=== PATIENT | female | born 1975 | race Hispanic/Latino ===

== ENCOUNTER 2017-03-22 19:06 | Emergency (ER) | payer BC, SELFPAY | END 2017-03-22 22:08 | disposition home or self-care (01) | LOC: ERS 19:06 | DX: H60.91 Unspecified otitis externa, right ear (principal); E11.9 Type 2 diabetes mellitus without complications; F41.9 Anxiety disorder, unspecified; Z79.84 Long term (current) use of oral hypoglycemic drugs | CPT/HCPCS: 99282 ==

== ENCOUNTER 2017-03-29 22:18 | Emergency (ER) | payer SELFPAY ==
[2017-03-29 23:12] LABS: #Eosinphils 0.1 thou/uL (0.0-0.7); #Lymphocytes 2.1 thou/uL (1.20-3.40); #Monocytes 0.4 thou/uL (0.11-0.59); #Neutrophils 4.6 thou/uL (1.40-6.50); %Basophils 0.1 % (0.0-1.0); %Eosinophils 1.8 % (0.0-10.0); %Lymphocytes 28.8 % (21.0-51.0); %Monocytes 5.1 % (0.0-10.0); Hematocrit 36.3 % (36.0-47.0); Mean Platelet Volume 7.7 fL (7.4-10.4); Red Blood Cell (RBC) Count 4.42 mill/uL (4.20-5.40); White Blood Cell (WBC) Count 7.1 thou/uL (4.8-10.8)
[2017-03-29 23:33] LABS: ALT (SGPT) 67 U/L (8-55); AST (SGOT) 61 U/L (5-34); Alkaline Phosphatase 105 U/L (40-150); Anion Gap 11 mmol/L (10-20); BUN (Urea Nitrogen) 13 mg/dL (7.0-18.7); Bilirubin, Total 0.4 mg/dL (0.2-1.2); Calc. Creatinine Clearance 0 mL/min (70-130); Calcium 9.4 mg/dL (7.8-10.44); Carbon Dioxide 26 mmol/L (22-29); Chloride 101 mmol/L (98-107); Estimated GFR-MDRD 72; Protein, Total 7.6 g/dL (6.0-8.3)
[2017-03-29 23:39] LABS: Magnesium 1.8 mg/dL (1.6-2.6); Phosphorus 3.6 mg/dL (2.3-4.7)
[2017-03-30 00:04] LABS: Bilirubin Negative (Negative); Blood, Urine Negative (Negative); Glucose, Urine (Dipstick) >=1000 mg/dL (Negative); Ketone, Urine Negative (Negative); Nitrite Negative (Negative); Protein, Urine (Dipstick) Negative (Neg-Trace)
== END 2017-03-30 01:55 | disposition home or self-care (01) ==
LOC: ERS 22:18
DX: E11.65 Type 2 diabetes mellitus with hyperglycemia (principal); F41.9 Anxiety disorder, unspecified
CPT/HCPCS: 36415; 36416; 80053; 81003; 82010; 83735; 84100; 85025; 99284

== ENCOUNTER 2017-07-18 13:12 | Emergency (ER) | payer SELFPAY ==
[2017-07-18 15:17] LABS: #Eosinphils 0.1 thou/uL (0.0-0.7); #Lymphocytes 1.9 thou/uL (1.20-3.40); #Monocytes 0.3 thou/uL (0.11-0.59); #Neutrophils 4.1 thou/uL (1.40-6.50); %Basophils 0.7 % (0.0-1.0); %Eosinophils 1.7 % (0.0-10.0); %Lymphocytes 29.7 % (21.0-51.0); %Monocytes 5.2 % (0.0-10.0); %Neutrophils 62.7 % (42.0-75.0); Hemoglobin 14.3 g/dL (12.0-16.0); Mean Corpuscular HGB CONC 35.2 g/dL (32.0-36.0); Mean Corpuscular Hemoglobin 30.7 pg (27.0-31.0); Mean Corpuscular Volume 87.1 fl (81.0-99.0); Mean Platelet Volume 7.5 fL (7.4-10.4); Platelet Count 192 thou/uL (130-400); RBC Distribution Width 14.2 % (11.5-14.5); Red Blood Cell (RBC) Count 4.67 mill/uL (4.20-5.40); White Blood Cell (WBC) Count 6.5 thou/uL (4.8-10.8)
[2017-07-18 15:36] LABS: ALT (SGPT) 46 U/L (8-55); AST (SGOT) 38 U/L (5-34); Alkaline Phosphatase 106 U/L (40-150); Anion Gap 11 mmol/L (10-20); BUN (Urea Nitrogen) 12 mg/dL (7.0-18.7); Bilirubin, Total 0.4 mg/dL (0.2-1.2); Calc. Creatinine Clearance 0 mL/min (70-130); Calcium 9.6 mg/dL (7.8-10.44); Carbon Dioxide 22 mmol/L (22-29); Chloride 106 mmol/L (98-107); Estimated GFR-MDRD 86; Globulin 4.3 g/dL (2.4-3.5); Glucose 249 mg/dL (70-105); Potassium 3.9 mmol/L (3.5-5.1); Protein, Total 8.3 g/dL (6.0-8.3); Sodium 135 mmol/L (136-145)
[2017-07-18] MEDS ORDERED: Lidocaine 1% w/Epinephrine 1:100K 20 ML VIAL ONE (17:46)
== END 2017-07-18 18:49 | disposition home or self-care (01) ==
LOC: ERS 13:12
DX: L02.211 Cutaneous abscess of abdominal wall (principal); L03.311 Cellulitis of abdominal wall; E11.9 Type 2 diabetes mellitus without complications; F41.9 Anxiety disorder, unspecified; Z79.84 Long term (current) use of oral hypoglycemic drugs
CPT/HCPCS: 10060; 36415; 80053; 83605; 85025; J2001

== ENCOUNTER 2017-09-18 23:20 | Emergency (ER) | payer SELFPAY ==
--- NOTE | 2017-09-18 23:47 | RAD ---
CHEST ONE VIEW: 09/18/17 HISTORY: 42-year-old female with history of chest pain. COMPARISON: 04/28/16. FINDINGS: Monitor leads overlie the chest. Heart size is within normal limits. No confluent pneumonia, overt ed german, or pleural effusion. IMPRESSION: No acute intrathoracic disease. Stable from prior study. POS: [facility]ATH[facility]
[2017-09-18 23:50] LABS: #Eosinphils 0.1 thou/uL (0.0-0.7); #Lymphocytes 2.5 thou/uL (1.20-3.40); #Monocytes 0.5 thou/uL (0.11-0.59); #Neutrophils 4.8 thou/uL (1.40-6.50); %Basophils 0.3 % (0.0-1.0); %Eosinophils 1.8 % (0.0-10.0); %Neutrophils 60.9 % (42.0-75.0); Hemoglobin 14.5 g/dL (12.0-16.0); Mean Corpuscular HGB CONC 35.4 g/dL (32.0-36.0); Mean Corpuscular Hemoglobin 31.2 pg (27.0-31.0); Mean Corpuscular Volume 88.1 fl (81.0-99.0); Mean Platelet Volume 7.4 fL (7.4-10.4); Platelet Count 196 thou/uL (130-400); RBC Distribution Width 13.4 % (11.5-14.5); Red Blood Cell (RBC) Count 4.66 mill/uL (4.20-5.40)
[2017-09-19 00:09] LABS: ALT (SGPT) 46 U/L (8-55); AST (SGOT) 41 U/L (5-34); Albumin 3.9 g/dL (3.5-5.0); Alkaline Phosphatase 106 U/L (40-150); Anion Gap 13 mmol/L (10-20); BUN (Urea Nitrogen) 14 mg/dL (7.0-18.7); Bilirubin, Total 0.5 mg/dL (0.2-1.2); CK (CPK) 92 U/L (29-168); Calc. Creatinine Clearance 0 mL/min (70-130); Calcium 9.6 mg/dL (7.8-10.44); Carbon Dioxide 23 mmol/L (22-29); Chloride 104 mmol/L (98-107); Estimated GFR-MDRD 81; Glucose 204 mg/dL (70-105); Potassium 3.9 mmol/L (3.5-5.1); Protein, Total 7.9 g/dL (6.0-8.3); Sodium 136 mmol/L (136-145)
[2017-09-19 00:14] LABS: CKMB 0.7 ng/mL (0-6.6); Troponin I Less than 0.010 ng/mL (< 0.028)
--- NOTE | 2017-10-19 14:58 | EKG ---
Test Reason : CHEST PAIN Blood Pressure : / mmHG Vent. Rate : 091 BPM Atrial Rate : 091 BPM P-R Int : 160 ms QRS Dur : 088 ms QT Int : 366 ms P-R-T Axes : 023 -33 -03 degrees QTc Int : 450 ms Normal sinus rhythm Left axis deviation Minimal voltage criteria for LVH, may be normal variant Possible Anterior infarct , age undetermined Abnormal ECG Confirmed by DEISY PAZ, SILAS ([id number]), rewrite editor JULIA GOODSON ([id number]) on 10/19/2017 2:57:30 PM Referred By: Confirmed By:SILAS OLIVAS MD
== END 2017-09-19 00:30 | disposition home or self-care (01) ==
LOC: ERS 23:20
DX: R07.9 Chest pain, unspecified (principal); M79.602 Pain in left arm; E11.9 Type 2 diabetes mellitus without complications; F41.9 Anxiety disorder, unspecified; Z79.84 Long term (current) use of oral hypoglycemic drugs
CPT/HCPCS: 71045; 80053; 82553; 84484; 85025; 93005

== ENCOUNTER 2017-10-12 05:11 | Emergency (ER) | payer SELFPAY ==
[2017-10-12] MEDS ORDERED: Ketorolac Tromethamine 60 MG/2 ML VIAL ONE (05:35)
[2017-10-12] MEDS ORDERED: Bupivacaine 0.5% 10 ML VIAL ONE (05:37)
== END 2017-10-12 06:38 | disposition home or self-care (01) ==
LOC: ERS 05:11
DX: K02.9 Dental caries, unspecified (principal); F41.9 Anxiety disorder, unspecified; E11.9 Type 2 diabetes mellitus without complications; Z79.84 Long term (current) use of oral hypoglycemic drugs
CPT/HCPCS: 64400; 96372; J1885; J3490

== ENCOUNTER 2017-12-10 13:09 | Emergency (ER) | payer SELFPAY | END 2017-12-10 15:13 | disposition home or self-care (01) | LOC: ERS 13:09 | DX: M26.623 Arthralgia of bilateral temporomandibular joint (principal); E11.9 Type 2 diabetes mellitus without complications; F41.9 Anxiety disorder, unspecified; Z79.84 Long term (current) use of oral hypoglycemic drugs | CPT/HCPCS: 99282 ==

== ENCOUNTER 2017-12-11 19:17 | Emergency (ER) | payer SELFPAY ==
[2017-12-11] MEDS ORDERED: Ketorolac Tromethamine 30 MG/ML VIAL ONE (20:15)
== END 2017-12-11 20:14 | disposition home or self-care (01) ==
LOC: SCSER 19:17
DX: H66.91 Otitis media, unspecified, right ear (principal); E11.9 Type 2 diabetes mellitus without complications; F41.9 Anxiety disorder, unspecified
CPT/HCPCS: 96372; J1885

== ENCOUNTER 2018-04-20 04:02 | Emergency (ER) | payer SELFPAY ==
[2018-04-20] MEDS ORDERED: Bupivacaine 0.5% 10 ML VIAL ONE (05:22)
[2018-04-20] MEDS ORDERED: Lidocaine Viscous Sol 2% 15 ml UD Cup ONE (05:22)
[2018-04-20] MEDS ORDERED: Lidocaine 1% (PF) 30 ML VIAL ONE (05:22)
== END 2018-04-20 06:03 | disposition home or self-care (01) ==
LOC: ERS 04:02
DX: K08.89 Other specified disorders of teeth and supporting structures (principal); E11.9 Type 2 diabetes mellitus without complications; Z79.84 Long term (current) use of oral hypoglycemic drugs
CPT/HCPCS: 64400; J2001; J3490

== ENCOUNTER 2018-04-20 14:44 | Emergency (ER) | payer SELFPAY | END 2018-04-20 15:13 | disposition home or self-care (01) | LOC: SCSER 14:44 | DX: K08.89 Other specified disorders of teeth and supporting structures (principal); E11.9 Type 2 diabetes mellitus without complications; Z79.84 Long term (current) use of oral hypoglycemic drugs | CPT/HCPCS: 99282 ==

== ENCOUNTER 2018-04-21 11:37 | Emergency (ER) | payer SELFPAY ==
[2018-04-21] MEDS ORDERED: Ketorolac Tromethamine 60 MG/2 ML VIAL ONE (13:33)
== END 2018-04-21 14:00 | disposition home or self-care (01) ==
LOC: ERS 11:37
DX: K02.9 Dental caries, unspecified (principal); E11.9 Type 2 diabetes mellitus without complications; Z79.84 Long term (current) use of oral hypoglycemic drugs; Z79.899 Other long term (current) drug therapy
CPT/HCPCS: 96372; J1885

== ENCOUNTER 2018-09-09 19:18 | Emergency (ER) | payer SELFPAY | END 2018-09-09 19:56 | disposition home or self-care (01) | LOC: SCSER 19:18 | DX: R05 Cough (principal); E11.9 Type 2 diabetes mellitus without complications; Z79.84 Long term (current) use of oral hypoglycemic drugs | CPT/HCPCS: 99281 ==

== ENCOUNTER 2018-09-14 09:55 | Emergency (ER) | payer SELFPAY ==
[2018-09-14] MEDS ORDERED: Ibuprofen 800 MG TAB ONE (10:47)
[2018-09-14] MEDS ORDERED: Dexamethasone 10 MG/ML VIAL ONE (10:47)
--- NOTE | 2018-09-14 10:47 | RAD ---
FEXAM: Chest Two Views 09/14/2018 10:43 AM HISTORY: Cough, sore throat and earache COMPARISON: February 07, 2017 FINDINGS: Heart: Normal Pulmonary vessels: Within normal limits Costophrenic angles: The lungs are clear. Lungs: No confluent pneumonia, overt edema, pleural effusion, or other acute process. Pneumothorax: No pneumothorax Osseous structures: No acute osseous abnormality IMPRESSION: No significant acute intrathoracic disease.
== END 2018-09-14 14:00 | disposition home or self-care (01) ==
LOC: ERS 09:55
DX: J02.9 Acute pharyngitis, unspecified (principal); H66.91 Otitis media, unspecified, right ear; E11.9 Type 2 diabetes mellitus without complications; Z79.84 Long term (current) use of oral hypoglycemic drugs
CPT/HCPCS: 36415; 71046; 85379; 87081; 87430; 87804; 94640; 96360; 96361; J1100; J7620

== ENCOUNTER 2019-08-30 07:49 | Emergency (ER) | payer BC, OTHER, SELFPAY ==
[2019-08-30 08:24] LABS: #Eosinphils 0.2 thou/uL (0.0-0.7); #Lymphocytes 2.5 thou/uL (1.20-3.40); #Monocytes 0.3 thou/uL (0.11-0.59); #Neutrophils 4.9 thou/uL (1.40-6.50); %Basophils 0.4 % (0.0-1.0); %Eosinophils 2.5 % (0.0-10.0); %Monocytes 3.9 % (0.0-10.0); %Neutrophils 62.3 % (42.0-75.0); Hemoglobin 15.1 g/dL (12.0-16.0); Mean Corpuscular Hemoglobin 33.2 pg (27.0-31.0); Mean Corpuscular Volume 92.1 fL (78.0-98.0); Mean Platelet Volume 7.3 fL (7.4-10.4); Platelet Count 206 thou/uL (130-400); Red Blood Cell (RBC) Count 4.56 mill/uL (4.20-5.40); White Blood Cell (WBC) Count 7.9 thou/uL (4.8-10.8)
[2019-08-30] MEDS ORDERED: Aspirin Chewable 81 MG TAB ONE (08:25)
--- NOTE | 2019-08-30 08:32 | RAD ---
Chest one view HISTORY: Chest pain. COMPARISON: 09/18/2017. FINDINGS: Cardiac silhouette is magnified by projection. Shallow inspiration accentuates pulmonary ma rkings. Mediastinum is midline. No confluent airspace consolidation or evidence of pneumothorax. IMPRESSION: No active cardiopulmonary abnormalities are demonstrated.
[2019-08-30 08:36] LABS: ALT (SGPT) 21 U/L (8-55); AST (SGOT) 20 U/L (5-34); Albumin 4.3 g/dL (3.5-5.0); Alkaline Phosphatase 78 U/L (40-110); Anion Gap 11 mmol/L (10-20); BUN (Urea Nitrogen) 14 mg/dL (7.0-18.7); Bilirubin, Total 0.4 mg/dL (0.2-1.2); Calc. Creatinine Clearance 0 mL/min (70-130); Calcium 9.5 mg/dL (7.8-10.44); Carbon Dioxide 26 mmol/L (22-29); Chloride 104 mmol/L (98-107); Estimated GFR-MDRD 86; Globulin 3.9 g/dL (2.4-3.5); Glucose 108 mg/dL (70-105); Potassium 3.7 mmol/L (3.5-5.1); Protein, Total 8.2 g/dL (6.0-8.3); Sodium 137 mmol/L (136-145)
== END 2019-08-30 09:11 | disposition home or self-care (01) ==
LOC: ERS 07:49
DX: R07.9 Chest pain, unspecified (principal); R05 Cough; I10 Essential (primary) hypertension; E11.9 Type 2 diabetes mellitus without complications; Z79.84 Long term (current) use of oral hypoglycemic drugs
CPT/HCPCS: 71045; 80053; 84484; 85025; 93005

== ENCOUNTER 2019-12-05 07:23 | Outpatient (CLI) | payer OTHER ==
[2019-12-06 11:34] LABS: SARS-CoV-2 MS2 Positive; SARS-CoV-2 N Gene Negative; SARS-CoV-2 S Gene Negative; SARS-CoV-2 orf1ab Negative
== END 2019-12-05 07:24 | disposition home or self-care (01) ==
LOC: LABBT 07:23
PROVIDERS: ATTEND Internal Medicine Gastroenterology
DX: Z01.812 Encounter for preprocedural laboratory examination (principal); Z11.59 Encounter for screening for other viral diseases; R13.19 Other dysphagia; E66.01 Morbid (severe) obesity due to excess calories
CPT/HCPCS: 87635; U0003

== ENCOUNTER 2019-12-09 14:08 | Outpatient (CLI) | payer OTHER ==
--- NOTE | 2019-12-09 14:48 | MMO ---
Bilateral MAMMO Bilat Screen DDI+PABLO. CLINICAL HISTORY: Patient is 44 years old and is seen for screening. The patient has no family history of breast cancer. The patient has no personal history of cancer. VIEWS: The views performed were: bilateral craniocaudal with tomosynthesis and bilateral mediolateral oblique with tomosynthesis. FILMS COMPARED: The present examination has been compared to prior imaging studies performed at [facility] on 09/09/2009, and at [facility] on 09/14/2009. This study has been interpreted with the assistance of computer-aided detection. MAMMOGRAM FINDINGS: There are scattered fibroglandular densities. There are no suspicious masses, suspicious calcifications, or new areas of architectural distortion. IMPRESSION: THERE IS NO MAMMOGRAPHIC EVIDENCE OF MALIGNANCY. A ROUTINE FOLLOW-UP MAMMOGRAM IN 1 YEAR IS RECOMMENDED. THE RESULTS OF THIS EXAM WERE SENT TO THE PATIENT. ACR BI-RADS Category 1 - Negative MAMMOGRAPHY NOTE: 1. A negative mammogram report should not delay a biopsy if a dominant of clinically suspicious mass is present. 2. Approximately 10% to 15% of breast cancers are not detected by mammography. 3. Adenosis and dense breasts may obscure an underlying neoplasm. Reported by: FAITH LISA MD Electonically Signed: [id number]
== END 2019-12-09 14:09 | disposition home or self-care (01) ==
LOC: BICMAMMO 14:08
PROVIDERS: ATTEND Physician Assistant
DX: Z12.31 Encounter for screening mammogram for malignant neoplasm of breast (principal)
CPT/HCPCS: 77063; 77067

== ENCOUNTER 2019-12-10 06:31 | Day surgery (SDC) | payer OTHER ==
[2019-12-04 14:33] VITALS: BMI 47.9
[2019-12-10] MEDS ORDERED: Ondansetron PF 4 MG/2 ML Vial ONE ×2 (09:13→11:48)
[2019-12-10] MEDS ORDERED: Lidocaine 1% PF 5 ML VIAL ONE (11:48)
[2019-12-10] MEDS ORDERED: PROPOFOL 200 MG/20 ML VIAL ONE (11:48)
--- NOTE | 2019-12-10 12:31 | OP ---
DATE OF PROCEDURE: 12/10/2019 PROCEDURES PERFORMED: EGD with biopsy and dilatation of the esophagus. PREPROCEDURE DIAGNOSES: 1. Three to four months of worsening belching and cervical dysphagia. 2. Reflux. 3. New onset diabetes, just started metformin. 4. Mild abdominal discomfort with bloating. 5. Recent normal CBC and CMP. POSTOPERATIVE DIAGNOSES: 1. Normal esophagus, dilated to 54-Austrian Gifford dilator, which is 18 mm. No effect on second look and no resistance. 2. Nodular gastritis consistent with the appearance of Helicobacter pylori gastritis. Multiple biopsies were obtained. RECOMMENDATIONS: 1. Continue b.i.d. PPI. 2. Anti-reflux regimen. 3. Weight loss. 4. If symptoms persist, consider ultrasound of the gallbladder at followup. 5. Followup set for December 23 at 10:30 a.m. ANESTHESIA: TIVA. DESCRIPTION OF PROCEDURE: After the patient was informed of the risks, benefits, and possible complications of endoscopy including perforation, reaction to medication, and aspiration, informed consent was obtained, the patient was brought to endoscopy suite, where she was sedated in gradual fashion. Once she was comfortable, bite block was placed inside the orifice. The endoscope was advanced into the esophagus, stomach, into the second and third portions of the duodenum and slowly removed. There was good visualization of the mucosa. The esophagus appeared normal. There was no evidence of strictures, masses, or lesions. There was no overt hiatal hernia. Forward and retroflexed views in the stomach were normal except for fine nodular gastritis in the antrum and distal body of the stomach, consistent with the appearance of H pylori gastritis. Multiple biopsies were obtained. This has been biopsied several years ago and was negative. The duodenum was entered and found to be normal in third portion. There was no evidence of villous blunting or inflammation in the duodenal bulb. The scope was removed. The patient tolerated the procedure well. No complications. Job ID: [id number]
== END 2019-12-10 10:25 | disposition home or self-care (01) ==
LOC: SDC 06:31
PROVIDERS: ATTEND Internal Medicine Gastroenterology
PROC: 0D757ZZ Dilation of Esophagus, Via Natural or Artificial Opening (ICD-10-PCS; principal; 2019-12-10)
PROC: 0DB58ZX Excision of Esophagus, Via Natural or Artificial Opening Endoscopic, Diagnostic (ICD-10-PCS; principal; 2019-12-10)
DX: K29.50 Unspecified chronic gastritis without bleeding (principal); K21.9 Gastro-esophageal reflux disease without esophagitis; E11.9 Type 2 diabetes mellitus without complications; G47.30 Sleep apnea, unspecified; Z79.84 Long term (current) use of oral hypoglycemic drugs; Z79.899 Other long term (current) drug therapy
CPT/HCPCS: 88305; 88312; J2001; J2405; J2704

== ENCOUNTER 2020-02-12 20:13 | Emergency (ER) | payer OTHER ==
[2020-02-12 21:10] LABS: ALT (SGPT) 25 U/L (8-55); AST (SGOT) 25 U/L (5-34); Albumin 3.9 g/dL (3.5-5.0); Alkaline Phosphatase 74 U/L (40-110); Anion Gap 10 mmol/L (10-20); BUN (Urea Nitrogen) 15 mg/dL (7.0-18.7); Bilirubin, Total 0.4 mg/dL (0.2-1.2); Calc. Creatinine Clearance 0 mL/min (70-130); Carbon Dioxide 24 mmol/L (22-29); Chloride 106 mmol/L (98-107); Estimated GFR-MDRD 86; Globulin 3.6 g/dL (2.4-3.5); Glucose 147 mg/dL (70-105); Lipase 26 U/L (8-78); Potassium 3.9 mmol/L (3.5-5.1); Protein, Total 7.5 g/dL (6.0-8.3); Sodium 136 mmol/L (136-145)
[2020-02-12 21:24] LABS: #Basophils 0.1 thou/uL (0.0-0.2); #Eosinphils 0.1 thou/uL (0.0-0.7); #Lymphocytes 2.8 thou/uL (1.20-3.40); #Monocytes 0.5 thou/uL (0.11-0.59); #Neutrophils 5.5 thou/uL (1.40-6.50); %Basophils 0.6 % (0.0-1.0); %Eosinophils 1.5 % (0.0-10.0); %Lymphocytes 31.1 % (21.0-51.0); %Monocytes 5.3 % (0.0-10.0); %Neutrophils 61.4 % (42.0-75.0); Hemoglobin 13.5 g/dL (12.0-16.0); Mean Corpuscular HGB CONC 34.8 g/dL (32.0-36.0); Mean Corpuscular Hemoglobin 32.3 pg (27.0-31.0); Mean Corpuscular Volume 92.9 fL (78.0-98.0); Mean Platelet Volume 7.7 fL (7.4-10.4); Platelet Count 180 thou/uL (130-400); RBC Distribution Width 11.9 % (11.5-14.5); Red Blood Cell (RBC) Count 4.19 mill/uL (4.20-5.40); White Blood Cell (WBC) Count 8.9 thou/uL (4.8-10.8)
--- NOTE | 2020-02-12 22:04 | RAD ---
EXAM: Single view of the chest HISTORY: Chest pain COMPARISON: 08/30/2019 FINDINGS: Single view of the chest shows a normal sized cardiomediastinal silhouette. A calcified gr anuloma projects over the left upper lobe. There is no evidence of consolidation or pleural effusion. No acute osseous abnormality. IMPRESSION: No evidence of acute cardiopulmonary disease
--- NOTE | 2020-02-12 22:18 | CT ---
EXAM: CTA of the chest HISTORY: Intermittent chest pain COMPARISON: 09/12/2013 TECHNIQUE: Multiple contiguous axial images were obtained a CTA of the chest with contrast per pulmon yenny embolism protocol. 3-D oblique MIP reformats and direct coronal reformats were performed. FINDINGS: HEART: Normal in size without focal cardiac abnormality. PULMONARY ARTERIES: Normal in caliber without filling defects to suggest pulmonary emboli. MEDIASTINUM: No hilar or mediastinal lymphadenopathy. LUNGS: No focal infiltrates or masses. PLEURAL SPACE: No pleural effusion or pneumothorax. CHEST WALL SOFT TISSUES: Unremarkable VISUALIZED OSSEOUS STRUCTURES: No acute abnormality. VISUALIZED SUBDIAPHRAGMATIC STRUCTURES: Unremarkable IMPRESSION: No evidence of pulmonary thromboembolism
--- NOTE | 2020-02-14 14:40 | EKG ---
Test Reason : Blood Pressure : / mmHG Vent. Rate : 084 BPM Atrial Rate : 084 BPM P-R Int : 150 ms QRS Dur : 092 ms QT Int : 398 ms P-R-T Axes : 018 -27 -06 degrees QTc Int : 470 ms Sinus rhythm with Premature ventricular complexes Minimal voltage criteria for LVH, may be normal variant Borderline ECG Confirmed by RAVINDER PAZ, PHILOMENA Williamson ([id number]), school photograph editor GARIMA OSCAR ([id number]) on 02/14/2020 2:39:28 PM Referred By: Confirmed By:PHILOMENA CASTELLON MD
== END 2020-02-12 23:09 | disposition home or self-care (01) ==
LOC: ERS 20:13
DX: R07.9 Chest pain, unspecified (principal); E11.9 Type 2 diabetes mellitus without complications; I10 Essential (primary) hypertension; Z79.84 Long term (current) use of oral hypoglycemic drugs
CPT/HCPCS: 36415; 71045; 71275; 80053; 83690; 84484; 85025; 85379; 93005

== ENCOUNTER 2020-02-19 06:41 | Emergency (ER) | payer OTHER ==
[2020-02-19 07:09] LABS: Bilirubin Negative (Negative); Blood, Urine Negative (Negative); Clarity Clear (Clear); Glucose, Urine (Dipstick) Normal (Negative); Ketone, Urine Negative (Negative); Leukocyte Negative Leu/uL (Negative); Nitrite Negative (Negative); Protein, Urine (Dipstick) Negative (Neg-Trace); Urobilinogen Normal mg/dL (Less than 2); pH, Urine 5.5 (5.0-9.0)
[2020-02-19] MEDS ORDERED: Ketorolac Tromethamine 30 MG/ML VIAL ONE (07:32)
--- NOTE | 2020-02-19 07:59 | RAD ---
EXAM: Single view of the chest HISTORY: Chest pain. Covid positive COMPARISON: 02/12/2020 FINDINGS: Single view of the chest shows a normal sized cardiomediastinal silhouette. There is no ronan dence of consolidation, mass, or pleural effusion. No acute osseous abnormality. IMPRESSION: No evidence of acute cardiopulmonary disease
[2020-02-19 08:01] LABS: #Lymphocytes 1.4 thou/uL (1.20-3.40); #Monocytes 0.5 thou/uL (0.11-0.59); #Neutrophils 1.6 thou/uL (1.40-6.50); %Eosinophils 1.2 % (0.0-10.0); %Lymphocytes 40.4 % (21.0-51.0); %Monocytes 12.6 % (0.0-10.0); %Neutrophils 45.7 % (42.0-75.0); Hemoglobin 14.3 g/dL (12.0-16.0); Mean Corpuscular HGB CONC 35.6 g/dL (32.0-36.0); Mean Corpuscular Hemoglobin 33.9 pg (27.0-31.0); Mean Corpuscular Volume 95.1 fL (78.0-98.0); Mean Platelet Volume 7.6 fL (7.4-10.4); Platelet Count 158 thou/uL (130-400); Red Blood Cell (RBC) Count 4.21 mill/uL (4.20-5.40); White Blood Cell (WBC) Count 3.5 thou/uL (4.8-10.8)
[2020-02-19 08:24] LABS: ALT (SGPT) 25 U/L (8-55); AST (SGOT) 26 U/L (5-34); Albumin 3.8 g/dL (3.5-5.0); Alkaline Phosphatase 70 U/L (40-110); Anion Gap 12 mmol/L (10-20); BUN (Urea Nitrogen) 11 mg/dL (7.0-18.7); Bilirubin, Total 0.4 mg/dL (0.2-1.2); Calc. Creatinine Clearance 0 mL/min (70-130); Calcium 8.7 mg/dL (7.8-10.44); Carbon Dioxide 24 mmol/L (22-29); Chloride 104 mmol/L (98-107); Estimated GFR-MDRD 87; Globulin 3.4 g/dL (2.4-3.5); Glucose 108 mg/dL (70-105); Potassium 3.7 mmol/L (3.5-5.1); Protein, Total 7.2 g/dL (6.0-8.3); Sodium 136 mmol/L (136-145)
[2020-02-19] MEDS ORDERED: Lorazepam 2 MG/ML VIAL ONE (10:28)
--- NOTE | 2020-02-19 10:38 | CT ---
CT arteriogram chest with IV contrast and 3-D imaging HISTORY: Chest pain. Dyspnea. COMPARISON: 09/12/2013. FINDINGS: There is good contrast opacification pulmonary arteries and thoracic aorta with normal bran casey of the great vessels at the aortic arch. No pleural fluid, consolidation, pneumothorax, or mediastinal adenopathy. IMPRESSION : Normal exam.
[2020-02-19] MEDS ORDERED: Iopamidol-370 76% 500 ML 1 ML ONE (13:22)
== END 2020-02-19 11:30 | disposition home or self-care (01) ==
LOC: ERS 06:41
DX: U07.1 COVID-19 (principal); M54.6 Pain in thoracic spine; E66.9 Obesity, unspecified; E11.9 Type 2 diabetes mellitus without complications; I10 Essential (primary) hypertension; Z79.84 Long term (current) use of oral hypoglycemic drugs
CPT/HCPCS: 71045; 71275; 80053; 81003; 83605; 85025; 85379; 96361; 96374; J1885; J2060; Q9967

== ENCOUNTER 2020-03-09 14:17 | Outpatient (CLI) | payer OTHER ==
[2020-03-10 11:58] LABS: SARS-CoV-2 MS2 Positive; SARS-CoV-2 N Gene Positive; SARS-CoV-2 S Gene Positive; SARS-CoV-2 by NAA DETECTED (NotDetected); SARS-CoV-2 orf1ab Positive
== END 2020-03-09 14:18 | disposition home or self-care (01) ==
LOC: LABSCS 14:17
PROVIDERS: ATTEND Otolaryngology Otolaryngic Allergy
DX: U07.1 COVID-19 (principal); R13.10 Dysphagia, unspecified
CPT/HCPCS: 87635; U0003

== ENCOUNTER 2020-04-05 11:07 | Emergency (ER) | payer OTHER ==
[2020-04-07 11:08] LABS: SARS-CoV-2 MS2 Positive; SARS-CoV-2 N Gene Negative; SARS-CoV-2 S Gene Negative; SARS-CoV-2 by NAA Not Detected (NotDetected); SARS-CoV-2 orf1ab Negative
== END 2020-04-05 12:56 | disposition home or self-care (01) ==
LOC: ERS 11:07
DX: H10.9 Unspecified conjunctivitis (principal)
CPT/HCPCS: 87635; 99283; U0003

== ENCOUNTER 2020-04-09 10:57 | Outpatient (CLI) | payer OTHER ==
--- NOTE | 2020-04-13 16:17 | RAD ---
Exam: Modified barium swallow, the presence speech pathologist HISTORY: Dysphagia. Aphasia oral pharyngeal phase. Gastroesophageal reflux disease. Exposure: 0.8 mg/sq m. 27 seconds. FINDINGS: The presence speech pathologist, the patient administered puree, thin liquid, mechanical so ft and regular texture is. Barium tablet was also administered. There is premature spillage to the level of the vallecula. There is penetration with thin liquid cons istency. IMPRESSION: Please refer to speech pathologist report for feeding recommendation.
== END 2020-04-09 10:58 | disposition home or self-care (01) ==
PROVIDERS: ATTEND Otolaryngology Otolaryngic Allergy
DX: R13.10 Dysphagia, unspecified (principal)
CPT/HCPCS: 74230

== ENCOUNTER 2020-06-07 20:51 | Emergency (ER) | payer OTHER ==
[~2020-06-07 20:51] MED LIST: Iopamidol-370 76% 500 ML 1 ML ONE
[2020-06-07 22:56] LABS: Bilirubin Negative (Negative); Blood, Urine Negative (Negative); Clarity Turbid (Clear); Glucose, Urine (Dipstick) Normal (Negative); Ketone, Urine Negative (Negative); Leukocyte Negative Leu/uL (Negative); Nitrite Negative (Negative); Protein, Urine (Dipstick) 20 mg/dL (Neg-Trace); Specific Gravity, Urine 1.026 (1.002-1.036); pH, Urine 6.5 (5.0-9.0)
[2020-06-07 22:57] LABS: #Basophils 0.1 thou/uL (0.0-0.2); #Eosinphils 0.1 thou/uL (0.0-0.7); #Lymphocytes 2.7 thou/uL (1.20-3.40); #Monocytes 0.6 thou/uL (0.11-0.59); #Neutrophils 4.6 thou/uL (1.40-6.50); %Basophils 0.7 % (0.0-1.0); %Eosinophils 1.7 % (0.0-10.0); %Monocytes 7.2 % (0.0-10.0); %Neutrophils 57.5 % (42.0-75.0); Hemoglobin 13.7 g/dL (12.0-16.0); Mean Corpuscular HGB CONC 34.9 g/dL (32.0-36.0); Mean Corpuscular Hemoglobin 32.2 pg (27.0-31.0); Mean Corpuscular Volume 92.3 fL (78.0-98.0); Mean Platelet Volume 7.5 fL (7.4-10.4); Platelet Count 182 thou/uL (130-400); RBC Distribution Width 11.5 % (11.5-14.5); Red Blood Cell (RBC) Count 4.27 mill/uL (4.20-5.40)
[2020-06-07 23:05] LABS: BHCG - Serum Negative (NEGATIVE); Pregs Control Background? CLEAR/WHITE (CLR/WHITE); Pregs Control Bar Appear? YES (CONTROL BAR)
--- NOTE | 2020-06-07 23:05 | RAD ---
EXAM: Single view of the chest HISTORY: Midsternal chest pain COMPARISON: 02/19/2020 FINDINGS: Single view of the chest shows a normal sized cardiomediastinal silhouette. There is stabl e elevation of the right hemidiaphragm. There is no evidence of consolidation, mass, or pleural effusion. No acute osseous abnormality. IMPRESSION: No evidence of acute cardiopulmonary disease
[2020-06-07 23:18] LABS: ALT (SGPT) 17 U/L (8-55); AST (SGOT) 17 U/L (5-34); Alkaline Phosphatase 69 U/L (40-110); Anion Gap 12 mmol/L (10-20); BUN (Urea Nitrogen) 17 mg/dL (7.0-18.7); Bilirubin, Total 0.5 mg/dL (0.2-1.2); Calc. Creatinine Clearance 0 mL/min (70-130); Calcium 9.1 mg/dL (7.8-10.44); Carbon Dioxide 28 mmol/L (22-29); Chloride 104 mmol/L (98-107); Globulin 3.5 g/dL (2.4-3.5); Glucose 89 mg/dL (70-105); Potassium 3.7 mmol/L (3.5-5.1); Protein, Total 7.5 g/dL (6.0-8.3); Sodium 140 mmol/L (136-145)
--- NOTE | 2020-06-08 08:19 | CT ---
CT ABDOMEN AND PELVIS WITH CONTRAST: COMPARISON: 03/17/2014. HISTORY: Left upper and left lower quadrant abdominal pain. TECHNIQUE: Multiple contiguous axial images were obtained in a CT of the abdomen and pelvis with contrast. Sagi ttal and coronal reformats were performed. FINDINGS: The liver, gallbladder, kidneys, adrenal glands, spleen, and pancreas are unremarkable. No free air, free fluid, or stranding changes are seen in the abdomen or pelvis. There are scattered diverticula in the colon. The small bowel is unremarkable. The appendix is not definitely seen. T he patient is status post hysterectomy. No abdominal or pelvis lymphadenopathy are present. The osseous structures and visualized inferior thorax are unremarkable. There is a 1.9 cm fat-contai hoda umbilical hernia. IMPRESSION: Diverticulosis without evidence of acute diverticulitis. POS: EAA
== END 2020-06-08 01:34 | disposition home or self-care (01) ==
LOC: ERS 20:51
DX: R07.89 Other chest pain (principal); R10.12 Left upper quadrant pain; R10.32 Left lower quadrant pain; Z79.84 Long term (current) use of oral hypoglycemic drugs; E11.9 Type 2 diabetes mellitus without complications
CPT/HCPCS: 36415; 71045; 74177; 80053; 81003; 83690; 84484; 84703; 85025; 85379; 93005; Q9967

== ENCOUNTER 2020-09-12 14:56 | Emergency (ER) | payer OTHER ==
[2020-09-12 15:14] LABS: #Basophils 0.1 thou/uL (0.0-0.2); #Eosinphils 0.1 thou/uL (0.0-0.7); #Lymphocytes 2.3 thou/uL (1.20-3.40); #Monocytes 0.5 thou/uL (0.11-0.59); #Neutrophils 5.2 thou/uL (1.40-6.50); %Basophils 0.7 % (0.0-1.0); %Eosinophils 1.7 % (0.0-10.0); %Lymphocytes 27.8 % (21.0-51.0); %Neutrophils 63.8 % (42.0-75.0); Hemoglobin 14.9 g/dL (12.0-16.0); Mean Corpuscular HGB CONC 35.8 g/dL (32.0-36.0); Mean Platelet Volume 7.1 fL (7.4-10.4); Platelet Count 206 thou/uL (130-400); RBC Distribution Width 11.8 % (11.5-14.5); Red Blood Cell (RBC) Count 4.51 mill/uL (4.20-5.40); White Blood Cell (WBC) Count 8.2 thou/uL (4.8-10.8)
[2020-09-12] MEDS ORDERED: Nitroglycerin 2% Ointment 1 INCH/1 GM Packet ONE (15:14)
[2020-09-12] MEDS ORDERED: Aspirin Chewable 81 MG TAB ONE (15:14)
[2020-09-12 15:34] LABS: ALT (SGPT) 18 U/L (8-55); AST (SGOT) 15 U/L (5-34); Albumin 4.1 g/dL (3.5-5.0); Alkaline Phosphatase 77 U/L (40-110); Anion Gap 13 mmol/L (10-20); BUN (Urea Nitrogen) 13 mg/dL (7.0-18.7); Bilirubin, Total 0.4 mg/dL (0.2-1.2); Calc. Creatinine Clearance 0 mL/min (70-130); Calcium 9.1 mg/dL (7.8-10.44); Carbon Dioxide 26 mmol/L (22-29); Chloride 104 mmol/L (98-107); Globulin 3.8 g/dL (2.4-3.5); Glucose 120 mg/dL (70-105); Potassium 3.9 mmol/L (3.5-5.1); Protein, Total 7.9 g/dL (6.0-8.3); Sodium 139 mmol/L (136-145)
[2020-09-12] MEDS ORDERED: Acetaminophen 500 MG TAB ONE (16:21)
[2020-09-12 17:57] LABS: Troponin I Less than 0.010 ng/mL (< 0.028)
== END 2020-09-12 19:02 | disposition home or self-care (01) ==
LOC: ERS 14:56
DX: R07.89 Other chest pain (principal); E11.9 Type 2 diabetes mellitus without complications; Z79.84 Long term (current) use of oral hypoglycemic drugs
CPT/HCPCS: 36415; 71045; 80053; 84484; 85025; 93005

== ENCOUNTER 2020-10-08 17:40 | Emergency (ER) | payer OTHER ==
[2020-10-08] MEDS ORDERED: Ketorolac Tromethamine 30 MG/ML VIAL ONE (18:04)
[2020-10-08 18:22] LABS: Bilirubin Negative (Negative); Blood, Urine Negative (Negative); Clarity Clear (Clear); Glucose, Urine (Dipstick) 70 mg/dL (Negative); Ketone, Urine Negative (Negative); Leukocyte Negative Leu/uL (Negative); Nitrite Negative (Negative); Protein, Urine (Dipstick) 10 mg/dL (Neg-Trace); Specific Gravity, Urine 1.029 (1.002-1.036); Urobilinogen 3 mg/dL (Less than 2)
== END 2020-10-08 18:59 | disposition home or self-care (01) ==
LOC: ERS 17:40
DX: R10.9 Unspecified abdominal pain (principal); E11.9 Type 2 diabetes mellitus without complications; Z79.84 Long term (current) use of oral hypoglycemic drugs
CPT/HCPCS: 81003; 96372; 99281; J1885

== ENCOUNTER 2021-02-25 14:50 | Outpatient (CLI) | payer OTHER | END 2021-02-25 14:51 | disposition home or self-care (01) | LOC: BICMAMMO 14:50 | PROVIDERS: ATTEND Physician Assistant | DX: Z12.31 Encounter for screening mammogram for malignant neoplasm of breast (principal) | CPT/HCPCS: 77063; 77067 ==

== ENCOUNTER 2021-02-26 08:30 | Emergency (ER) | payer OTHER | END 2021-02-26 09:06 | disposition home or self-care (01) | LOC: ERS 08:30 | DX: M25.562 Pain in left knee (principal); E11.9 Type 2 diabetes mellitus without complications | CPT/HCPCS: 99281 ==

== ENCOUNTER 2021-07-24 10:03 | Inpatient (IN) | payer OTHER ==
[2021-07-24] MEDS ORDERED: Nitroglycerin 2% Ointment 1 INCH/1 GM Packet ONE (10:54)
[2021-07-24] MEDS ORDERED: Aspirin Chewable 81 MG TAB ONE (10:54)
[2021-07-24 11:11] LABS: #Basophils 0.1 thou/uL (0.0-0.2); #Eosinphils 0.1 thou/uL (0.0-0.7); #Lymphocytes 1.9 thou/uL (1.20-3.40); #Monocytes 0.4 thou/uL (0.11-0.59); #Neutrophils 3.9 thou/uL (1.40-6.50); %Basophils 0.9 % (0.0-1.0); %Eosinophils 1.2 % (0.0-10.0); %Lymphocytes 30.4 % (21.0-51.0); %Monocytes 5.8 % (0.0-10.0); %Neutrophils 61.7 % (42.0-75.0); Hemoglobin 14.7 g/dL (12.0-16.0); Mean Corpuscular HGB CONC 36.1 g/dL (32.0-36.0); Mean Corpuscular Hemoglobin 33.6 pg (27.0-31.0); Mean Corpuscular Volume 93.1 fL (78.0-98.0); Mean Platelet Volume 6.9 fL (7.4-10.4); Platelet Count 189 thou/uL (130-400); RBC Distribution Width 11.5 % (11.5-14.5); Red Blood Cell (RBC) Count 4.37 mill/uL (4.20-5.40); White Blood Cell (WBC) Count 6.2 thou/uL (4.8-10.8)
[2021-07-24 11:36] LABS: ALT (SGPT) 25 U/L (8-55); AST (SGOT) 20 U/L (5-34); Albumin 4.1 g/dL (3.5-5.0); Alkaline Phosphatase 75 U/L (40-110); Anion Gap 11 mmol/L (10-20); BUN (Urea Nitrogen) 16 mg/dL (7.0-18.7); Bilirubin, Total 0.6 mg/dL (0.2-1.2); Calc. Creatinine Clearance 0 mL/min (70-130); Calcium 9.8 mg/dL (7.8-10.44); Carbon Dioxide 27 mmol/L (22-29); Chloride 104 mmol/L (98-107); Globulin 3.4 g/dL (2.4-3.5); Glucose 132 mg/dL (70-105); Lipase 27 U/L (8-78); Potassium 4.1 mmol/L (3.5-5.1); Protein, Total 7.5 g/dL (6.0-8.3); Sodium 138 mmol/L (136-145)
[2021-07-24 11:54] LABS: CK (CPK) 119 U/L (29-168)
[2021-07-24 14:58] LABS: SARS-CoV-2 NAA Rapid Test Not Detected (NotDetected)
[2021-07-24] MEDS ORDERED: Acetaminophen 500 MG TAB ONE ×2 (16:08)
[2021-07-24] MEDS ORDERED: Dextrose 50% Abboject 50 ML SYRINGE SLOW IVP PRN (16:14)
[2021-07-24] MEDS ORDERED: Nitroglycerin 0.4 MG TAB (25 Tab Bottle) SL PRN (16:14)
[2021-07-24] MEDS ORDERED: Dextrose 5% in Water 1,000 ML IV PRN (16:14)
[2021-07-24] MEDS ORDERED: HumaLOG 300 UNITS/3 ML VIAL SC PRN ×2 (16:14)
[2021-07-24] MEDS ORDERED: Ondansetron ODT 4 MG TAB PO PRN (16:14)
[2021-07-24] MEDS ORDERED: Lisinopril 5 MG TAB PO SCH (16:30)
[2021-07-24] MEDS ORDERED: Acetaminophen 500 MG TAB PO SCH (17:00)
[2021-07-24 19:16] VITALS: BMI 463403.3
[2021-07-24] MEDS: Nitroglycerin 2% Ointment 1 INCH/1 GM Packet TOP SCH (21:36)
[2021-07-24] MEDS: Acetaminophen 325 MG TAB PO PRN (21:46)
[2021-07-25 04:41] LABS: #Eosinphils 0.1 thou/uL (0.0-0.7); #Lymphocytes 2.2 thou/uL (1.20-3.40); #Monocytes 0.5 thou/uL (0.11-0.59); #Neutrophils 3.8 thou/uL (1.40-6.50); %Basophils 0.4 % (0.0-1.0); %Eosinophils 2.2 % (0.0-10.0); %Lymphocytes 32.7 % (21.0-51.0); %Monocytes 7.4 % (0.0-10.0); %Neutrophils 57.3 % (42.0-75.0); Hemoglobin 13.4 g/dL (12.0-16.0); Mean Corpuscular HGB CONC 35.4 g/dL (32.0-36.0); Mean Corpuscular Hemoglobin 33.4 pg (27.0-31.0); Mean Corpuscular Volume 94.4 fL (78.0-98.0); Mean Platelet Volume 6.9 fL (7.4-10.4); Platelet Count 188 thou/uL (130-400); RBC Distribution Width 11.7 % (11.5-14.5); Red Blood Cell (RBC) Count 4.02 mill/uL (4.20-5.40); White Blood Cell (WBC) Count 6.7 thou/uL (4.8-10.8)
[2021-07-25 04:48] LABS: Hemoglobin A1c 5.9 % (4.0-6.0)
[2021-07-25 05:01] LABS: Anion Gap 10 mmol/L (10-20); BUN (Urea Nitrogen) 16 mg/dL (7.0-18.7); Calc. Creatinine Clearance 201 mL/min (70-130); Calcium 8.7 mg/dL (7.8-10.44); Carbon Dioxide 24 mmol/L (22-29); Cardiac Risk 4.1 (Less than 4.5); Chloride 106 mmol/L (98-107); Cholesterol 143 mg/dl (< 200 Desired); Glucose 129 mg/dL (70-105); HDL Cholesterol 35 mg/dL (>60 Neg Risk); LDL Cholesterol, Calculated 64 mg/dL; Potassium 3.6 mmol/L (3.5-5.1); Sodium 136 mmol/L (136-145); Triglycerides 220 mg/dL (Less than 150)
[2021-07-25] MEDS: Acetaminophen 325 MG TAB PO PRN (05:01)
[2021-07-25] MEDS: Nitroglycerin 2% Ointment 1 INCH/1 GM Packet TOP SCH ×3 (05:03→21:24)
[2021-07-25] MEDS: Lisinopril 5 MG TAB PO SCH (09:00)
[2021-07-25] MEDS: Aspirin Chewable 81 MG TAB PO SCH (09:00)
[2021-07-25] MEDS: Aspirin 325 MG TAB ONE ×2 (17:25→17:27)
[2021-07-25] MEDS ORDERED: Atorvastatin Calcium 20 MG TAB PO SCH (21:00)
[2021-07-26] MEDS: Nitroglycerin 2% Ointment 1 INCH/1 GM Packet TOP SCH (05:17)
[2021-07-26] MEDS: Aspirin Chewable 81 MG TAB PO SCH (09:55)
[2021-07-26] MEDS: Lisinopril 5 MG TAB PO SCH (09:55)
[2021-07-26] MEDS: Acetaminophen 325 MG TAB PO PRN (09:55)
[2021-07-26] MEDS ORDERED: metFORMIN 500 MG TAB PO SCH ×2 (12:00→17:00)
[2021-07-26 15:26] VITALS: BP 127/83; TEMP 98
[2021-07-27] MEDS ORDERED: Lisinopril 10 MG TAB PO SCH (09:00)
== END 2021-07-26 16:07 | disposition home or self-care (01) | DRG 392 ==
LOC: ERS 10:03 → ERHOLD 12:08 → 2NO 17:44 → OBSVTOIN 07-25 18:02
PROVIDERS: ADMIT Internal Medicine; ATTEND Family Medicine
DX: K21.9 Gastro-esophageal reflux disease without esophagitis (principal); Z68.42 Body mass index [BMI] 45.0-49.9, adult; Z20.822 Contact with and (suspected) exposure to COVID-19; E11.9 Type 2 diabetes mellitus without complications; I10 Essential (primary) hypertension; E78.5 Hyperlipidemia, unspecified; E66.01 Morbid (severe) obesity due to excess calories; Z79.899 Other long term (current) drug therapy; Z79.84 Long term (current) use of oral hypoglycemic drugs; Z90.49 Acquired absence of other specified parts of digestive tract; Z90.710 Acquired absence of both cervix and uterus; Z98.51 Tubal ligation status
CPT/HCPCS: 36415; 36416; 71045; 78452; 80048; 80053; 80061; 82550; 83036; 83690; 83735; 83880; 84484; 85025; 85379; 93005; 93017; 94760; A9500; G0378; J0153; U0002

== ENCOUNTER 2022-02-18 06:00 | Emergency (ER) | payer OTHER, SELFPAY | END 2022-02-18 06:54 | disposition home or self-care (01) | LOC: ERS 06:00 | DX: H69.92 Unspecified Eustachian tube disorder, left ear (principal); H61.22 Impacted cerumen, left ear; E11.9 Type 2 diabetes mellitus without complications | CPT/HCPCS: 99283 ==

== ENCOUNTER 2022-03-12 08:01 | Emergency (ER) | payer SELFPAY ==
[2022-03-12] MEDS ORDERED: HYDROcodone/Acetaminophen 10/325 mg Tablet ONE (08:46)
[2022-03-12] MEDS ORDERED: Ketorolac Tromethamine 30 MG/ML VIAL ONE (08:46)
== END 2022-03-12 09:00 | disposition home or self-care (01) ==
LOC: ERS 08:01
DX: M54.42 Lumbago with sciatica, left side (principal); E11.9 Type 2 diabetes mellitus without complications; Z79.84 Long term (current) use of oral hypoglycemic drugs; Z79.899 Other long term (current) drug therapy
CPT/HCPCS: 96372; 99283; J1885

== ENCOUNTER 2022-03-13 17:44 | Emergency (ER) | payer SELFPAY ==
[2022-03-13 19:04] LABS: #Eosinphils 0.1 thou/uL (0.0-0.7); #Monocytes 0.5 thou/uL (0.11-0.59); %Basophils 0.7 % (0.0-1.0); %Eosinophils 1.8 % (0.0-10.0); %Lymphocytes 30.4 % (21.0-51.0); %Monocytes 7.2 % (0.0-10.0); %Neutrophils 59.9 % (42.0-75.0); Hemoglobin 13.5 g/dL (12.0-16.0); Mean Corpuscular HGB CONC 34.6 g/dL (32.0-36.0); Mean Corpuscular Hemoglobin 33.8 pg (27.0-31.0); Mean Corpuscular Volume 97.7 fL (78.0-98.0); Mean Platelet Volume 7.6 fL (7.4-10.4); Platelet Count 180 thou/uL (130-400); RBC Distribution Width 11.6 % (11.5-14.5); Red Blood Cell (RBC) Count 3.98 mill/uL (4.20-5.40); White Blood Cell (WBC) Count 6.7 thou/uL (4.8-10.8)
[2022-03-13 19:15] LABS: BHCG - Serum Negative (NEGATIVE); Pregs Control Background? CLEAR/WHITE (CLR/WHITE); Pregs Control Bar Appear? YES (CONTROL BAR)
[2022-03-13 19:25] LABS: ALT (SGPT) 25 U/L (8-55); AST (SGOT) 22 U/L (5-34); Albumin 3.9 g/dL (3.5-5.0); Alkaline Phosphatase 62 U/L (40-110); Anion Gap 9 mmol/L (10-20); BUN (Urea Nitrogen) 16 mg/dL (7.0-18.7); Bilirubin, Total 0.4 mg/dL (0.2-1.2); Calc. Creatinine Clearance 0 mL/min (70-130); Calcium 9.3 mg/dL (7.8-10.44); Carbon Dioxide 26 mmol/L (22-29); Chloride 107 mmol/L (98-107); Estimated GFR 100; Globulin 3.3 g/dL (2.4-3.5); Glucose 93 mg/dL (70-105); Lipase 27 U/L (8-78); Potassium 3.7 mmol/L (3.5-5.1); Protein, Total 7.2 g/dL (6.0-8.3); Sodium 138 mmol/L (136-145)
[2022-03-13 19:52] LABS: Bilirubin Negative (Negative); Blood, Urine Negative (Negative); Clarity Clear (Clear); Glucose, Urine (Dipstick) Normal (Negative); Ketone, Urine Negative (Negative); Leukocyte Negative Leu/uL (Negative); Nitrite Negative (Negative); Protein, Urine (Dipstick) 20 mg/dL (Neg-Trace); Specific Gravity, Urine 1.015 (1.002-1.036); pH, Urine 5.5 (5.0-9.0)
[2022-03-13] MEDS ORDERED: Morphine 4 MG/ML VIAL ONE (19:56)
[2022-03-13] MEDS ORDERED: Ondansetron PF 4 MG/2 ML Vial ONE (19:56)
== END 2022-03-13 22:15 | disposition home or self-care (01) ==
LOC: ERS 17:44
DX: R10.32 Left lower quadrant pain (principal); E11.9 Type 2 diabetes mellitus without complications; I10 Essential (primary) hypertension; Z79.84 Long term (current) use of oral hypoglycemic drugs; Z79.899 Other long term (current) drug therapy
CPT/HCPCS: 36415; 74177; 80053; 81003; 83690; 84703; 85025; 96374; 96375; J2270; J2405

== ENCOUNTER 2022-07-04 14:27 | Outpatient (CLI) | payer BC | END 2022-07-04 14:28 | disposition home or self-care (01) | LOC: BICMAMMO 14:27 | PROVIDERS: ATTEND Nurse Practitioner Family | DX: Z12.31 Encounter for screening mammogram for malignant neoplasm of breast (principal) | CPT/HCPCS: 77063; 77067 ==

== ENCOUNTER 2023-06-18 22:05 | Emergency (ER) | payer BC ==
[2023-06-18 23:03] LABS: #Eosinphils 0.2 thou/uL (0.0-0.7); #Monocytes 0.4 thou/uL (0.11-0.59); #Neutrophils 4.6 thou/uL (1.40-6.50); %Basophils 0.3 % (0.0-1.0); %Lymphocytes 28.6 % (21.0-51.0); %Monocytes 5.7 % (0.0-10.0); %Neutrophils 62.9 % (42.0-75.0); Hematocrit 37.6 % (36.0-47.0); Hemoglobin 13.1 g/dL (12.0-16.0); Mean Corpuscular HGB CONC 34.8 g/dL (32.0-36.0); Mean Corpuscular Hemoglobin 32.9 pg (27.0-31.0); Mean Corpuscular Volume 94.5 fl (78.0-98.0); Mean Platelet Volume 9.9 fL (7.4-10.4); Platelet Count 167 10x3/uL (130-400); RBC Distribution Width 12.3 % (11.5-14.5); Red Blood Cell (RBC) Count 3.98 mill/uL (4.20-5.40); White Blood Cell (WBC) Count 7.4 10x3/uL (4.8-10.8)
[2023-06-18 23:47] LABS: ALT (SGPT) 19 U/L (8-55); AST (SGOT) 16 U/L (5-34); Albumin 3.8 g/dL (3.5-5.0); Alkaline Phosphatase 72 U/L (40-110); Anion Gap 11 mmol/L (10-20); BUN (Urea Nitrogen) 20 mg/dL (7.0-18.7); Bilirubin, Total 0.4 mg/dL (0.2-1.2); Calc. Creatinine Clearance 0 mL/min (70-130); Calcium 9.1 mg/dL (7.8-10.44); Carbon Dioxide 23 mmol/L (22-29); Chloride 107 mmol/L (98-107); Estimated GFR 95; Glucose 176 mg/dL (70-105); Lipase 32 U/L (8-78); Protein, Total 6.8 g/dL (6.0-8.3); Sodium 137 mmol/L (136-145)
[2023-06-18 23:53] LABS: Troponin I 0.012 ng/mL (< 0.028)
[2023-06-19] MEDS ORDERED: Ketorolac Tromethamine 30 MG (1 mL) VIAL ONE (00:06)
== END 2023-06-19 00:33 | disposition home or self-care (01) ==
LOC: ERS 22:05
DX: R07.9 Chest pain, unspecified (principal); E11.9 Type 2 diabetes mellitus without complications; I10 Essential (primary) hypertension; Z79.899 Other long term (current) drug therapy; Z79.84 Long term (current) use of oral hypoglycemic drugs
CPT/HCPCS: 36415; 71045; 80053; 83690; 84484; 85025; 93005; 96372; J1885

== ENCOUNTER 2024-03-15 06:04 | Emergency (ER) | payer BC ==
[2024-03-15] MEDS ORDERED: Ketorolac Tromethamine 30 MG (1 mL) VIAL ONE (06:23)
== END 2024-03-15 06:50 | disposition home or self-care (01) ==
LOC: ERS 06:04
DX: S29.012A Strain of muscle and tendon of back wall of thorax, initial encounter (principal); X58.XXXA Exposure to other specified factors, initial encounter
CPT/HCPCS: 96372; 99283; J1885

== ENCOUNTER 2024-05-20 21:18 | Emergency (ER) | payer BC ==
[2024-05-21] MEDS ORDERED: Ketorolac Tromethamine 30 MG (1 mL) VIAL ONE (00:02)
== END 2024-05-21 00:26 | disposition home or self-care (01) ==
LOC: ERS 21:18
DX: N64.4 Mastodynia (principal); M54.50 Low back pain, unspecified; E11.9 Type 2 diabetes mellitus without complications; I10 Essential (primary) hypertension
CPT/HCPCS: 93005; 96372; 99283; J1885

== ENCOUNTER 2024-05-25 16:20 | Emergency (ER) | payer BC ==
[2024-05-25] MEDS ORDERED: Dexamethasone 4 MG TAB ONE (18:23)
== END 2024-05-25 18:26 | disposition home or self-care (01) ==
LOC: ERS 16:20
DX: R05.9 Cough, unspecified (principal); R09.81 Nasal congestion; B97.4 Respiratory syncytial virus as the cause of diseases classified elsewhere; E11.9 Type 2 diabetes mellitus without complications; I10 Essential (primary) hypertension; Z79.84 Long term (current) use of oral hypoglycemic drugs; Z79.85 Long-term (current) use of injectable non-insulin antidiabetic drugs; Z79.899 Other long term (current) drug therapy
CPT/HCPCS: 71045; 87428; 93005; J8540

== ENCOUNTER 2024-07-15 12:28 | Emergency (ER) | payer BC, SELFPAY ==
[~2024-07-15 12:28] MED LIST changes: -Iopamidol-370 76% 500 ML 1 ML ONE; +Iopamidol-370 76% 500 ML MDV (1 ML CHARGE) ONE
[2024-07-15 13:52] LABS: #Basophils Less than 0.03 10x3/uL (0.0-0.2); %Basophils 0.2 % (0.0-1.0); %Eosinophils 0.5 % (0.0-10.0); %Lymphocytes 7.9 % (21.0-51.0); %Monocytes 7.6 % (0.0-10.0); %Neutrophils 83.2 % (42.0-75.0); Hematocrit 41.8 % (36.0-47.0); Hemoglobin 14.8 g/dL (12.0-16.0); Mean Corpuscular HGB CONC 35.4 g/dL (32.0-36.0); Mean Corpuscular Hemoglobin 32.4 pg (27.0-31.0); Mean Corpuscular Volume 91.5 fL (78.0-98.0); Mean Platelet Volume 9.7 fL (7.4-10.4); Platelet Count 157 10x3/uL (130-400); RBC Distribution Width 12.4 % (11.5-14.5); Red Blood Cell (RBC) Count 4.57 mill/uL (4.20-5.40)
[2024-07-15 14:02] LABS: Bilirubin Small (Negative); Blood, Urine Large (Negative); Glucose, Urine (Dipstick) Negative (Negative); Ketone, Urine 15 mg/dL (Negative); Leukocyte Negative (Negative); Nitrite Negative (Negative); Protein, Urine (Dipstick) 30 mg/dL (Neg-Trace)
[2024-07-15 14:05] LABS: Clarity Turbid (Clear); Specific Gravity, Urine Greater/Equal 1.030 (1.005-1.030)
[2024-07-15 14:10] LABS: Bacteria/HPF 4+ HPF (None Seen); CAUTI Indications for Culture Pelvic or flank pain; Mucous/LPF 2+ LPF (<2+)
[2024-07-15 14:11] LABS: BHCG - Serum Negative (NEGATIVE); Pregs Control Background? CLEAR/WHITE (CLR/WHITE); Pregs Control Bar Appear? YES (CONTROL BAR)
[2024-07-15 14:12] LABS: Urine Culture Reflex No No
[2024-07-15 14:15] LABS: ALT (SGPT) 23 U/L (Less than 34); AST (SGOT) 31 U/L (11-34); Alkaline Phosphatase 77 U/L (40-110); Anion Gap 14 mmol/L (10-20); BUN (Urea Nitrogen) 14 mg/dL (7.0-18.7); Calc. Creatinine Clearance 0 mL/min (70-130); Calcium 8.6 mg/dL (7.8-10.44); Carbon Dioxide 18 mmol/L (22-29); Chloride 109 mmol/L (98-107); Estimated GFR 109; Globulin 3.9 g/dL (2.4-3.5); Glucose 100 mg/dL (70-105); Lipase 25 U/L (8-78); Potassium 3.6 mmol/L (3.5-5.1); Protein, Total 7.9 g/dL (6.0-8.3); Sodium 137 mmol/L (136-145)
== END 2024-07-15 19:48 | disposition home or self-care (01) ==
LOC: ERS 12:28
DX: N39.0 Urinary tract infection, site not specified (principal); E11.9 Type 2 diabetes mellitus without complications; I10 Essential (primary) hypertension
CPT/HCPCS: 36415; 71045; 74177; 81001; 83605; 83690; 84703; 87077; 87086; 87428; 93005; 94760; 96360; Q9967

== ENCOUNTER 2025-01-01 07:59 | Emergency (ER) | payer SELFPAY ==
[2025-01-01] MEDS ORDERED: Gabapentin 300 MG CAP ONE (08:37)
== END 2025-01-01 10:12 | disposition home or self-care (01) ==
LOC: ERS 07:59
DX: B02.9 Zoster without complications (principal); M19.90 Unspecified osteoarthritis, unspecified site; R20.2 Paresthesia of skin; E11.9 Type 2 diabetes mellitus without complications; I10 Essential (primary) hypertension; Z79.84 Long term (current) use of oral hypoglycemic drugs; Z79.899 Other long term (current) drug therapy
CPT/HCPCS: 36416; 72131

== ENCOUNTER 2025-01-29 08:05 | Observation (INO) | payer OTHER, SELFPAY ==
[2025-01-29] MEDS ORDERED: Nitroglycerin 0.4 MG TAB 1 EACH ONE ×2 (08:23→11:54)
[2025-01-29 08:37] LABS: #Basophils Less than 0.03 10x3/uL (0.0-0.2); #Eosinophils 0.11 10x3/uL (0.0-0.7); #Monocytes 0.39 10x3/uL (0.11-0.59); #Neutrophils 3.54 10x3/uL (1.40-6.50); %Basophils 0.3 % (0.0-1.0); %Eosinophils 1.9 % (0.0-10.0); %Lymphocytes 30.4 % (21.0-51.0); %Monocytes 6.6 % (0.0-10.0); %Neutrophils 60.1 % (42.0-75.0); Hematocrit 40.7 % (36.0-47.0); Hemoglobin 14.5 g/dL (12.0-16.0); Mean Corpuscular Hemoglobin 32.4 pg (27.0-31.0); Mean Corpuscular Volume 90.8 fL (78.0-98.0); Platelet Count 163 10x3/uL (130-400); Red Blood Cell (RBC) Count 4.48 mill/uL (4.20-5.40); White Blood Cell (WBC) Count 5.89 10x3/uL (4.8-10.8)
[2025-01-29 08:58] LABS: ALT (SGPT) 27 U/L (Less than 34); AST (SGOT) 29 U/L (11-34); Albumin 3.9 g/dL (3.1-4.5); Alkaline Phosphatase 84 U/L (40-110); Anion Gap 11 mmol/L (10-20); BUN (Urea Nitrogen) 15 mg/dL (7.0-18.7); Bilirubin, Total 0.6 mg/dL (0.3-1.2); Calc. Creatinine Clearance 0 mL/min (70-130); Calcium 8.7 mg/dL (7.8-10.44); Carbon Dioxide 22 mmol/L (22-29); Chloride 107 mmol/L (98-107); Globulin 3.5 g/dL (2.4-3.5); Glucose 145 mg/dL (70-105); Potassium 3.8 mmol/L (3.5-5.1); Sodium 136 mmol/L (136-145)
[2025-01-29] MEDS ORDERED: Iopamidol-370 76% 500 ML MDV (1 ML CHARGE) ONE (12:01)
[2025-01-29] MEDS ORDERED: Acetaminophen 325 MG TAB PO PRN (13:01)
[2025-01-29] MEDS ORDERED: Glucagon 1 MG/ML KIT IM PRN (13:01)
[2025-01-29] MEDS ORDERED: Dextrose 50% Abboject 50 ML SYRINGE SLOW IVP PRN (13:01)
[2025-01-29] MEDS ORDERED: Ondansetron PF 4 MG/2 ML Vial IVP PRN (13:01)
[2025-01-29] MEDS ORDERED: Nitroglycerin 0.4 MG TAB (25 Tab Bottle) SL PRN (13:01)
[2025-01-29] MEDS ORDERED: Melatonin 3 MG TAB PO PRN (13:01)
[2025-01-29] MEDS ORDERED: Mag-Al 1200 mg/1200 mg/30 ML UDCUP ONE (13:32)
[2025-01-29] MEDS ORDERED: Lidocaine Viscous Sol 2% 15 ml UD Cup ONE (13:33)
[2025-01-29 14:20] VITALS: BMI 48.9
[2025-01-29] MEDS: metFORMIN 500 MG TAB PO SCH (20:55)
[2025-01-30] MEDS: metFORMIN 500 MG TAB PO SCH (09:44)
[2025-01-30] MEDS: Aspirin Chewable 81 MG TAB PO SCH (09:44)
[2025-01-30] MEDS: Enoxaparin 40 MG (0.4 mL) SYRINGE SC SCH (09:44)
[2025-01-30] MEDS: Lisinopril 10 MG TAB PO SCH (09:44)
[2025-01-30] MEDS: Pantoprazole 40 MG DR.TAB PO SCH (09:48)
[2025-01-30 12:21] VITALS: BP 120/77; TEMP 98.5
[2025-01-30] MEDS ORDERED: metFORMIN 500 MG TAB PO SCH (17:00)
== END 2025-01-30 14:20 | disposition home or self-care (01) ==
LOC: ERS 08:05 → OBS 12:37
PROVIDERS: ADMIT Internal Medicine; ATTEND Family Medicine
PROC: B245ZZZ Ultrasonography of Left Heart (ICD-10-PCS; principal; 2025-01-29)
DX: R07.89 Other chest pain (principal); I10 Essential (primary) hypertension; E11.9 Type 2 diabetes mellitus without complications; K21.9 Gastro-esophageal reflux disease without esophagitis; E66.01 Morbid (severe) obesity due to excess calories; F41.9 Anxiety disorder, unspecified; I07.1 Rheumatic tricuspid insufficiency; Z68.42 Body mass index [BMI] 45.0-49.9, adult; Z79.899 Other long term (current) drug therapy; Z87.19 Personal history of other diseases of the digestive system; Z79.84 Long term (current) use of oral hypoglycemic drugs
CPT/HCPCS: 36415; 36416; 71045; 71275; 80053; 84484; 85025; 85379; 93005; 93306; 94760; G0378; J1815; J2270; Q9967

== ENCOUNTER 2025-02-03 17:12 | Emergency (ER) | payer OTHER, SELFPAY ==
[2025-02-03 18:59] LABS: Bacteria/HPF None Seen HPF (None Seen); CAUTI Indications for Culture Dysuria,urgency,freq; Glucose, Urine (Dipstick) 500 mg/dL (Negative); Leukocyte Negative Leu/uL (Negative); Protein, Urine (Dipstick) Negative (Neg-Trace); RBC/HPF 0-3 HPF (0-3); Specific Gravity, Urine 1.032 (1.002-1.036); WBC/HPF 0-3 HPF (0-3)
[2025-02-03 19:17] LABS: Urine Culture Reflex No No
[2025-02-03 19:28] LABS: #Basophils 0.04 10x3/uL (0.0-0.2); #Eosinophils 0.15 10x3/uL (0.0-0.7); #Monocytes 0.49 10x3/uL (0.11-0.59); #Neutrophils 4.05 10x3/uL (1.40-6.50); %Basophils 0.6 % (0.0-1.0); %Eosinophils 2.1 % (0.0-10.0); %Lymphocytes 32.3 % (21.0-51.0); %Monocytes 6.9 % (0.0-10.0); %Neutrophils 57.4 % (42.0-75.0); Hematocrit 41.8 % (36.0-47.0); Hemoglobin 14.8 g/dL (12.0-16.0); Mean Corpuscular Hemoglobin 32.7 pg (27.0-31.0); Mean Corpuscular Volume 92.3 fL (78.0-98.0); Platelet Count 155 10x3/uL (130-400); Red Blood Cell (RBC) Count 4.53 mill/uL (4.20-5.40); White Blood Cell (WBC) Count 7.06 10x3/uL (4.8-10.8)
[2025-02-03 19:41] LABS: ALT (SGPT) 28 U/L (Less than 34); AST (SGOT) 31 U/L (11-34); Albumin 4.0 g/dL (3.1-4.5); Alkaline Phosphatase 83 U/L (40-110); Anion Gap 13 mmol/L (10-20); BUN (Urea Nitrogen) 16 mg/dL (7.0-18.7); Bilirubin, Total 0.4 mg/dL (0.3-1.2); Calc. Creatinine Clearance 0 mL/min (70-130); Calcium 9.3 mg/dL (7.8-10.44); Carbon Dioxide 23 mmol/L (22-29); Chloride 104 mmol/L (98-107); Globulin 3.6 g/dL (2.4-3.5); Glucose 165 mg/dL (70-105); Potassium 4.2 mmol/L (3.5-5.1); Sodium 136 mmol/L (136-145)
[2025-02-03 20:31] LABS: BHCG - Serum Negative (NEGATIVE); Pregs Control Bar Appear? YES (CONTROL BAR)
[2025-02-03 20:32] LABS: Pregs Control Background? CLEAR/WHITE (CLR/WHITE)
[2025-02-03 20:34] LABS: Lipase 34 U/L (8-78); Magnesium 1.9 mg/dL (1.6-2.6)
== END 2025-02-03 22:56 | disposition home or self-care (01) ==
LOC: ERS 17:12
DX: M54.50 Low back pain, unspecified (principal); R51.9 Headache, unspecified; E11.9 Type 2 diabetes mellitus without complications; I10 Essential (primary) hypertension
CPT/HCPCS: 36415; 71045; 71260; 74177; 80053; 81001; 83605; 83690; 83735; 83880; 84484; 84703; 85025; 93005

== ENCOUNTER 2025-02-18 19:28 | Emergency (ER) | payer SELFPAY ==
[2025-02-18] MEDS ORDERED: Ibuprofen 800 MG TAB ONE (20:33)
== END 2025-02-18 21:30 | disposition home or self-care (01) ==
LOC: ERS 19:28
DX: B34.9 Viral infection, unspecified (principal); M25.562 Pain in left knee; E11.9 Type 2 diabetes mellitus without complications; I10 Essential (primary) hypertension; Z79.84 Long term (current) use of oral hypoglycemic drugs; Z79.899 Other long term (current) drug therapy
CPT/HCPCS: 71045; 87081; 87428; 87430

== ENCOUNTER 2025-06-11 13:18 | Emergency (ER) | payer OTHER, SELFPAY ==
[2025-06-11 13:34] LABS: Bacteria/HPF None Seen HPF (None Seen); CAUTI Indications for Culture Dysuria,urgency,freq; Glucose, Urine (Dipstick) Greater than 1000 mg/dL (Negative); Leukocyte Negative Leu/uL (Negative); Protein, Urine (Dipstick) Negative (Neg-Trace); RBC/HPF None Seen HPF (0-3); Specific Gravity, Urine 1.033 (1.002-1.036); WBC/HPF None Seen HPF (0-3)
[2025-06-11 13:35] LABS: Urine Culture Reflex No No
[2025-06-11] MEDS ORDERED: Ketorolac Tromethamine 30 MG (1 mL) VIAL ONE (14:26)
[2025-06-11 15:13] LABS: #Basophils Less than 0.03 10x3/uL (0.0-0.2); #Eosinophils 0.14 10x3/uL (0.0-0.7); #Monocytes 0.48 10x3/uL (0.11-0.59); #Neutrophils 4.06 10x3/uL (1.40-6.50); %Basophils 0.3 % (0.0-1.0); %Eosinophils 2.0 % (0.0-10.0); %Lymphocytes 31.4 % (21.0-51.0); %Monocytes 6.9 % (0.0-10.0); %Neutrophils 58.5 % (42.0-75.0); Hematocrit 39.1 % (36.0-47.0); Hemoglobin 13.7 g/dL (12.0-16.0); Mean Corpuscular Hemoglobin 32.4 pg (27.0-31.0); Mean Corpuscular Volume 92.4 fL (78.0-98.0); Platelet Count 159 10x3/uL (130-400); Red Blood Cell (RBC) Count 4.23 mill/uL (4.20-5.40); White Blood Cell (WBC) Count 6.94 10x3/uL (4.8-10.8)
[2025-06-11 15:30] LABS: ALT (SGPT) 30 U/L (Less than 34); AST (SGOT) 32 U/L (11-34); Albumin 3.8 g/dL (3.1-4.5); Alkaline Phosphatase 90 U/L (40-110); Anion Gap 12 mmol/L (10-20); BUN (Urea Nitrogen) 17 mg/dL (7.0-18.7); Bilirubin, Total 0.4 mg/dL (0.3-1.2); Calc. Creatinine Clearance 0 mL/min (70-130); Calcium 9.3 mg/dL (7.8-10.44); Carbon Dioxide 24 mmol/L (22-29); Chloride 106 mmol/L (98-107); Globulin 3.4 g/dL (2.4-3.5); Glucose 161 mg/dL (70-105); Lipase 29 U/L (8-78); Potassium 3.9 mmol/L (3.5-5.1); Sodium 138 mmol/L (136-145)
[2025-06-11 23:39] LABS: Chlamydia by PCR, Vaginal Swab Not Detected (NotDetected); GC by PCR, Vaginal Swab Not Detected (NotDetected)
== END 2025-06-11 15:58 | disposition home or self-care (01) ==
LOC: ERS 13:18
DX: R10.A1 Flank pain, right side (principal); E11.65 Type 2 diabetes mellitus with hyperglycemia; I10 Essential (primary) hypertension; Z79.84 Long term (current) use of oral hypoglycemic drugs; Z79.899 Other long term (current) drug therapy
CPT/HCPCS: 36416; 74176; 76705; 80053; 81001; 83690; 84484; 85025; 87480; 87491; 87510; 87591; 87660; 93005; 96374; J1885